=== PATIENT | male | born 1970 | race Caucasian/White ===

== ENCOUNTER 2018-03-28 10:53 | Outpatient (CLI) | payer OTHER ==
--- NOTE | 2018-03-28 13:06 | RAD ---
2 VIEW CHEST: Date: 03/28/18 INDICATION: Psoriasis, L40.0. FINDINGS: Lungs are hypoinflated, without consolidation. No effusion or pneumothorax. Cardiac silhouette is acc entuated by shallow depth of inspiration. Mild tortuosity of the thoracic aorta is present. There are mild osteophytes of the imaged thoracolumbar spine and there is mild degenerative change at each katie ulder. IMPRESSION: No focal consolidation. POS: [facility]
== END 2018-03-28 10:54 | disposition home or self-care (01) ==
LOC: BICRAD 10:53
PROVIDERS: ATTEND Dermatology
DX: L40.0 Psoriasis vulgaris (principal)
CPT/HCPCS: 71046